=== PATIENT | male | born 1945 | race Caucasian/White ===

== ENCOUNTER 2017-12-25 13:51 | Emergency (ER) | payer MEDICARE, OTHER ==
[~2017-12-25 13:51] MED LIST: ABIL5TAB6 PO; ATOR40TA PO; DONE5TAB14 PO; OMEP20TA39 PO; PRIS100T PO
[2017-12-25 13:53] VITALS: BP 163/82; PULSE 76; RESP 21; TEMP 98.5; O2SAT 98
--- NOTE | 2017-12-25 15:42 | PD ---
HPI Chief Complaint: Eye Problems/Injury Time Seen by Provider: 15:30 Travel History International Travel<30 days: No Contact w/Intl Traveler<30days: No Traveled to known affect area: No History of Present Illness HPI 72-year-old male presents to the emergency Department with complaint of right eye redness, pain, swelling since yesterday morning when he woke up with his eye swollen shut. He did see his medical scientist, Dr. Graff, yesterday and was put on antibiotic eyedrops which she does not know the name of. Wears contact lenses and say he removes them nightly. Reports improvement in the swelling of the eye and no decrease in pain. He has had a rash to the back of his neck, nose that he has been being treated for with cream for the past few months and thinks the rash has spread to his right eye. He is requesting testing of the rash in his eye in the back of his neck to see if it's the same rash. Denies trauma to the eye. Denies fever, vomiting. Reports blurry vision as if he is looking through a "frosted eye." No one else with similar symptoms. Rates pain 10/10. Feels like a pressure. No known aggravating or relieving factors. Has no other medical complaints. No other modifying factors or associated signs and symptoms. PFSH Past Medical History Cancer: Yes (Hx Neoplasm of Prostate; radiation) Cardiovascular Problems: Yes (angina) Gastrointestinal Disorders: Yes (gerd) Psychiatric: Yes (depression;panic disorder;alcohol dependence) Respiratory: Yes (HX SOB) Past Surgical History Other Surgery: Yes (HERNIA REPAIR) Social History Alcohol Use: No Tobacco Use: No Substance Use: No Allergies-Medications (Allergen,Severity, Reaction): Coded Allergies: divalproex sodium (Unverified Allergy, Unknown, 12/25/17) lamotrigine (Unverified Allergy, Unknown, 12/25/17) Reported Meds & Prescriptions Reported Meds & Active Scripts Active Erythromycin Opth Oint 5 Mg/Gm Oint 1 Applic RIGHT EYE QID 7 Days Ibuprofen 800 Mg Tab 800 Mg PO Q8H PRN Francitas (Hydrocodone-Acetaminophen) 5 Mg-325 Mg Tab 1 Tab PO Q4H PRN Review of Systems Except as stated in HPI: all other systems reviewed are Neg Physical Exam Narrative GENERAL: Well-nourished, well-developed male patient, in no acute distress; afebrile, nontoxic-appearing SKIN: Warm and dry. HEAD: Atraumatic. Normocephalic. EYES: Pupils equal and round at 2 mm with brisk reaction. PERRLA. EOMI. Contact lens appears to be intact in R eye. Right lid eversion with no foreign body noted. Right eye with scleral erythema and mild lid edema. No orbital tenderness, erythema or cellulitis. Right eye without photophobia. No consensual photophobia. No scleral icterus. Dried, Crusted drainage noted to upper and lower eyelashes. Tam lamp exam reveals Right eye with contact lens in place and stuck. ENT: Mucosa pink and moist. Airway patent. NECK: Trachea midline. CARDIOVASCULAR: Regular rate. RESPIRATORY: No accessory muscle use. GASTROINTESTINAL: Flat. NEUROLOGICAL: Awake and alert. Oriented 3. No obvious cranial nerve deficits. Motor grossly within normal limits. Normal speech. PSYCHIATRIC: Appropriate mood and affect; insight and judgment normal. Data Data Last Documented VS Vital Signs Date Time Temp Pulse Resp B/P (MAP) Pulse Ox O2 Delivery O2 Flow Rate FiO2 12/25/17 13:53 98.5 76 21 163/82 (109) 98 Room Air Orders Orders Proparacaine 0.5% Opth Soln (Alcaine 0.5 (12/25/17 15:45) Eye Irrigation (12/25/17 16:36) Ed Discharge Order (12/25/17 17:38) [facility] Medical Decision Making Medical Screen Exam Complete: Yes Emergency Medical Condition: Yes Medical Record Reviewed: Yes Differential Diagnosis Preseptal cellulitis, conjunctivitis, stye, foreign body, corneal abrasion, corneal ulceration Narrative Course 72-year-old male physical exam consistent with a contact lens stuck in his right eye. Eye irrigation ordered. 1735: Contact lens found on the patient's cheek after eye irrigation. On reexamination of Atm lamp exam patient has corneal abrasion to the mid eye over the iris and pupil. Francitas, ibuprofen, erythromycin ophth ointment prescribed for home. Instructed patient to follow up with medical scientist tomorrow. Instructed patient to follow up with primary care provider. Patient verbalizes understanding and agreement with treatment plan. Patient is medically cleared and stable for discharge. Discussed reasons to return to the emergency department. Patient agrees with treatment plan. The patients vital signs are stable and the patient is stable for outpatient follow-up and treatment. Patient discharged home, stable and in no acute distress. Diagnosis Primary Impression: Contact lens stuck Additional Impression: Corneal abrasion, right Qualified Codes: S05.01XA - Injury of conjunctiva and corneal abrasion without foreign body, right eye, initial encounter Referrals: [employer] Primary Care Physician Patient Instructions: Corneal Abrasion (ED), General Instructions Additional Instructions: Ibuprofen or Tylenol as directed and as needed to reduce pain Do not rub the eye Refrigerated eye drops as needed to reduce pain Cool compresses to the eye as needed to reduce pain Follow-up with ophthalmology in 1 day Primary care provider Return to the emergency department immediately with worsening of symptoms Med/Other Pt SpecificInfo: Prescription(s) given Scripts Erythromycin Opth Oint (Erythromycin Opth Oint) 5 Mg/Gm Oint 1 APPLIC RIGHT EYE QID for Infection for 7 Days, #1 TUBE 0 Refills Prov: Britta John 12/25/17 Ibuprofen (Ibuprofen) 800 Mg Tab 800 MG PO Q8H Y for PAIN SCALE 1 TO 10, #20 TAB 0 Refills Prov: Britta JohnP 12/25/17 Hydrocodone-Acetaminophen (Francitas) 5 Mg-325 Mg Tab 1 TAB PO Q4H Y for PAIN, #10 TAB 0 Refills Prov: Britta JohnP 12/25/17 Disposition: 01 DISCHARGE HOME Condition: Stable Britta John Dec 25, 2017 15:42
[2017-12-25] MEDS ORDERED: PROPARACAINE HCL 0.5% OPHT SOLN 15 ML BTL RIGHT EYE ONE (15:45)
[2017-12-25] MEDS ORDERED: NORC5TAB PO (17:38)
[2017-12-25] MEDS ORDERED: IBUP1TAB7 PO (17:38)
[2017-12-25] MEDS ORDERED: ERYTOIN10 RIGHT EYE (17:38)
== END 2017-12-25 17:56 | disposition home or self-care (01) ==
LOC: NEPD 13:51
DX: S05.01XA Injury of conjunctiva and corneal abrasion without foreign body, right eye, initial encounter (principal); X58.XXXA Exposure to other specified factors, initial encounter
CPT/HCPCS: 99283

== ENCOUNTER 2018-01-11 06:14 | Day surgery (SDC) | payer MEDICARE, OTHER ==
[~2018-01-11] VITALS: Ht 172.7 cm; Wt 55.0 kg
[2018-01-11] VITALS (8 sets, daily range): BP systolic 113–144; BP diastolic 71–88; PULSE 56–66; RESP 18; TEMP 97.5–98; O2SAT 92–98
[~2018-01-11 06:14] MED LIST changes: -ABIL5TAB6 PO; -ATOR40TA PO; -DONE5TAB14 PO; +ERYTOIN10 RIGHT EYE; +IBUP1TAB7 PO; +NORC5TAB PO; -OMEP20TA39 PO; -PRIS100T PO
[2018-01-11] MEDS ORDERED: ATOR40TA16 PO (07:00)
[2018-01-11] MEDS ORDERED: SERT-132 PO (07:00)
[2018-01-11] MEDS ORDERED: ROPI1TAB PO (07:00)
[2018-01-11] MEDS ORDERED: NITR1SUB3 SL (07:00)
[2018-01-11] MEDS ORDERED: DONE10TA7 PO (07:00)
[2018-01-11] MEDS ORDERED: OMEP20TA93 PO (07:00)
[2018-01-11] MEDS ORDERED: TRAZ50TA12 PO (07:00)
[2018-01-11] MEDS ORDERED: ASPI-183 PO (07:10)
[2018-01-11] MEDS ORDERED: SODIUM CHLOR 0.9% 1000 ML IV SCH (07:15)
[2018-01-11] MEDS ORDERED: LIDOCAINE HCL 1% 20 ML VIAL ONE (07:20)
[2018-01-11] MEDS ORDERED: fentaNYL CITRATE 250 MCG/5 ML AMP ONE (08:08)
[2018-01-11] MEDS ORDERED: MIDAZOLAM HCL 2 MG/2 ML VIAL ONE ×2 (08:08→08:47)
--- NOTE | 2018-01-11 09:05 | PD.RAD ---
Post Procedure Progress Note Pre Procedure Diagnosis: (1) Liver mass Post Procedure Diagnosis: (1) Liver mass Procedure Date: Jan 11, 2018 Supervising Radiologist: Roger Juarez Estimated blood loss: none Anesthesia: Local, Conscious Sedation Plan of Activity Patient to Unit: ROPU Patient Condition: Good Additional Comments: CT guided biopsy completed without difficulty. 2 core samples taken (18ga) Post biopsy CT unremarkable. Full dictated report to follow See PACS Report for procedural detail/treatment Roger Juarez MD Jan 11, 2018 09:05
[2018-01-11] MEDS ORDERED: PILL SPLITTER OTHER PRN (09:15)
[2018-01-11] MEDS ORDERED: HYDROmorphone HCL 2 MG TAB PO PRN (09:15)
--- NOTE | 2018-01-11 09:40 | RADRPT ---
EXAM DATE/TIME: 01/11/2018 08:40 [place] COMPARISON: No previous studies available for comparison. INDICATIONS : Liver mass. SEDATION TIME: 30 minutes BIOPSY SITE: liver MEDICATION(S): 1.) 2 mg midazolam (Versed) IV 2.) 100 mcg fentanyl (Sublimaze) IV DEVICE(S): 1.) 18 gauge Temno core biopsy needle 6cm MEDICAL HISTORY : Carcinoma, prostate. SURGICAL HISTORY : None. ENCOUNTER: Initial ACUITY: 1 day PAIN SCORE: 0/10 LOCATION: anterior A total of two core specimen(s) were obtained and sent to the laboratory for pathologic evaluation. PROCEDURE: 1. CT guided liver biopsy. 2. Conscious sedation with continuous EKG and oximetry monitoring. Prior to the procedure informed consent was obtained. Any appropriate prior imaging studies were rev iewed. Using automated exposure control and adjustment of the mA and/or kV according to patient size, radiat ion dose was kept as low as reasonably achievable to obtain optimal diagnostic quality images. DICOM format image data is available electronically for review and comparison. The site was prepped in a sterile fashion. Full sterile technique was used, including cap, mask, etienne rile gloves and gown and a large sterile sheet. Hand hygiene and 2% chlorhexidine and/or betadine/al cohol prep was utilized per protocol for cutaneous antisepsis. The skin and subcutaneous tissues wer e infiltrated with local anesthetic solution. Noncontrast CT imaging was performed. The lesion was not visible. The patient was given contrast. The lesion was easily identified following contrast administration. With CT guidance the previously identified target was localized. Biopsy was performed using an 18 gau ge Temno biopsy needle. 2 core samples were obtained.. Adequate hemostasis was obtained with darek zulay at the puncture site. Follow-up CT scan reveals no hemorrhage. The patient tolerated the procedure well and there were no complications. The patient was returned to the Radiology Outpatient Unit in stable condition. CONCLUSION: Uncomplicated CT guided biopsy. This patient's lesion is only briefly visualized following contrast a dministration. Roger Juarez MD on January 11, 2018 at 9:37 Board Certified Radiologist. This report was verified electronically.
== END 2018-01-11 13:15 | disposition home or self-care (01) ==
LOC: HRAD 06:14 → HRIP 06:33 → HRAD 13:15
PROVIDERS: ATTEND Internal Medicine Gastroenterology
DX: R16.0 Hepatomegaly, not elsewhere classified (principal); R63.4 Abnormal weight loss; E83.19 Other disorders of iron metabolism; Z85.46 Personal history of malignant neoplasm of prostate
CPT/HCPCS: 47000; 77012; 88307; 88313; J2250; J3010; J7030